=== PATIENT | male | born 1985 ===

== ENCOUNTER 2023-03-21 16:35 | Emergency (ER) | payer OTHER, MEDICAID, SELFPAY ==
[2023-03-21] VITALS (28 sets, daily range): BP systolic 140–167; BP diastolic 89–106; PULSE 83–99; RESP 14–28; TEMP 36.9; O2SAT 96–99; BMI 24.3
--- NOTE | 2023-03-21 16:43 | DI.CT.S_ITS ---
PROCEDURE: CT HEAD/BRAIN WO CON INDICATIONS: trauma, fall off 10 foot ladder TECHNIQUE: Noncontrast 4.5 mm thick angled axial sections acquired from the foramen magnum to the vertex, with coronal and sagittal reformats. For radiation dose reduction, the following was used: automated exposure control, adjustment of mA and/or kV according to patient size. COMPARISON: None. FINDINGS: Image quality: Excellent. CSF spaces: Basal cisterns are patent. No extra-axial fluid collections. Ventricles are normal in size and shape. Brain: No midline shift. No intracranial masses or hemorrhage. Ray-white matter interface is normal. Skull and face: Calvarium and visualized facial bones are intact, without suspicious lesions. Sinuses: Visualized sinuses and mastoids are clear. IMPRESSION: No acute intracranial findings. Dictated by: Alessia Borjas M.D. on 03/21/2023 at 17:14 Approved by: Alessia Borjas M.D. on 03/21/2023 at 17:15
--- NOTE | 2023-03-21 16:43 | DI.CT.S_ITS ---
PROCEDURE: CT CHEST ABD PEL W CON INDICATIONS: trauma, fall off 10 foot ladder TECHNIQUE: After the administration of intravenous contrast, 5 mm thick sections acquired from the lung apices to the symphysis. 2.5 mm thick coronal and sagittal reformats were acquired. Additional 7 mm thick coronal maximum intensity projection (MIP) reformats acquired through the lungs. Optional 10-minute delayed imaging may be performed from the kidneys to the bladder. For radiation dose reduction, the following was used: automated exposure control, adjustment of mA and/or kV according to patient size. COMPARISON: None. FINDINGS: Image quality: Excellent. CHEST: Lungs: No pulmonary contusions or lacerations. No acute airspace opacities. No pneumothorax or hemothorax. Central and peripheral airways appear patent and normal in caliber. Mediastinum: No mediastinal hematomas. Heart size is normal. No pericardial effusion. Thoracic aorta and pulmonary arteries demonstrate normal size and enhancement. No mediastinal or hilar adenopathy. Esophagus is normal in caliber. No hiatal hernia. Chest wall: No rib fractures. No subcutaneous emphysema. No axillary or supraclavicular adenopathy. Thyroid gland is unremarkable. ABDOMEN: Solid organs: Liver is normal in size and enhancement, without lacerations. Gallbladder is unremarkable. Biliary system is non-dilated. Pancreas enhances normally, without transection. Spleen is normal in size and enhancement, without lacerations. No adrenal hematomas. Both kidneys enhance normally, without hydronephrosis or lacerations. Peritoneum and bowel: No free fluid or air. Unenhanced bowel loops demonstrate normal wall thickness and caliber. The appendix is thin walled and gas filled. Nodes and vessels: There are multiple shotty retroperitoneal lymph nodes, the largest of which measures 1.2 cm in short axis diameter (series 10/image 91). Aorta and inferior vena cava are normal in size and enhancement. Miscellaneous: No ventral hernias. PELVIS: Genitourinary: Bladder wall thickness is normal. Miscellaneous: No inguinal hernias or adenopathy. Bones: Pelvic ring and hip joints appear intact. No vertebral compression fractures. IMPRESSION: 1. No acute intra-abdominal or thoracic findings. 2. Normal appendix. 3. Enlarged retroperitoneal lymph node. This is a nonspecific finding. Differential considerations include inflammatory, infectious, and neoplastic etiologies. Given the lack of other findings and patient age, inflammatory/infectious etiologies are favored. However, follow-up is recommended. Dictated by: Alessia Borjas M.D. on 03/21/2023 at 17:18 Approved by: Alessia Borjas M.D. on 03/21/2023 at 17:23
--- NOTE | 2023-03-21 16:43 | DI.CT.S_ITS ---
PROCEDURE: CT CERVICAL SPINE WO CON INDICATIONS: trauma, fall off 10 foot ladder TECHNIQUE: Noncontrast 3 mm thick sections acquired from the skull base to the T4 level. Sagittal and coronal reformats were then constructed. For radiation dose reduction, the following was used: automated exposure control, adjustment of mA and/or kV according to patient size. COMPARISON: None. FINDINGS: Image quality: Excellent. Bones: No fractures or dislocations. Visualized superior ribs are intact. Soft tissues: Prevertebral soft tissues are normal in thickness. No paravertebral hematomas. No apical pneumothoraces. IMPRESSION: No acute cervical spine injury. Dictated by: Alessia Borjas M.D. on 03/21/2023 at 17:15 Approved by: Alessia Borjas M.D. on 03/21/2023 at 17:18
[2023-03-21 17:23] LABS: Add Manual Diff / Slide Review NO; Basophils Absolute Auto 0 /uL (0-100); Basophils Percent Auto 0.4 % (0-2); Eosinophils Absolute Auto 100 /uL (0-450); Eosinophils Percent Auto 2.3 % (2-4); Hematocrit 47.5 % (41-53); Hemoglobin 16.3 g/dL (13.5-17.5); Lymphocytes Absolute Auto 1200 /uL (1100-4500); Lymphocytes Percent Auto 31.9 % (25-40); Mean Corpuscular HGB Conc 34.2 % (30-36); Mean Corpuscular Hemoglobin 33.3 PG (26-34); Mean Corpuscular Volume 97.2 fL (80-100); Monocytes Absolute Auto 500 /uL (0-900); Monocytes Percent Auto 11.7 % (3-14); Neutrophils Absolute Auto 2100 /uL (1500-7000); Neutrophils Percent Auto 53.7 % (50-75); Platelet Count 194 X10^3/uL (150-400); Red Blood Cell Count 4.89 X10^6/uL (4.5-5.9); Red Cell Distribution Width 12.6 % (11.6-14.8); White Blood Cell Count 3.9 X10^3/uL (4.5-11.0)
--- NOTE | 2023-03-21 17:24 | PC.NURSE ---
Patient used cocaine 10 years ago and experienced 3x seizure episodes/overdose. Pt denies use of cocaine in past 10 years, states he drinks 3-12 beers per day and smokes weed.
[2023-03-21 17:31] LABS: Prothrombin Time 11.2 SECONDS (10.1-12.7)
[2023-03-21 17:34] LABS: PTT Partial Thromboplastin Tim 30 SECONDS (26-36)
[2023-03-21 17:36] LABS: Alanine Aminotransferase 33 IU/L (<50); Albumin 4.6 g/dL (3.5-5.0); Albumin Globulin Ratio 1.4 (1.0-2.8); Alkaline Phosphatase 60 U/L (38-126); Aspartate Aminotransferase 49 IU/L (17-59); BUN Creatinine Ratio 5.6 (6-22); Bilirubin Total 0.6 mg/dL (0.2-1.3); Blood Urea Nitrogen 4 mg/dL (9-20); Calcium 8.4 mg/dL (8.4-10.2); Carbon Dioxide 23 mmol/L (22-32); Chloride 107 mmol/L (98-107); Estimated Glomerular Filt Rate > 60 mL/min (>60); Globulin 3.2 g/dL (1.7-4.1); Glucose 96 mg/dL (70-100); HEMOLYSIS 32 (0-50); Lactate (Lactic Acid) 2.4 mmol/L (0.7-2.1); Potassium 4.1 mmol/L (3.4-5.1); Sodium 142 mmol/L (137-145); Total Protein 7.8 g/dL (6.3-8.2)
[2023-03-21 17:43] LABS: Ethanol (ETOH) 310 mg/dL
--- NOTE | 2023-03-21 17:46 | DI.RAD.S_ITS ---
PROCEDURE: XR HAND RT MIN 3V INDICATIONS: fall from ladder TECHNIQUE: 3 views of the hand(s) acquired. COMPARISON: None. FINDINGS: Bones: No fractures or dislocations. Carpal bones are normally aligned. No suspicious bony lesions. Soft tissues: No suspicious soft tissue calcifications. IMPRESSION: A definitive fracture or dislocation. If clinical symptoms persist or clinical suspicion for pathology is high, a repeat examination in 7-10 days is suggested for further evaluation. Dictated by: Marcela Owusu M.D. on 03/21/2023 at 18:54 Approved by: Marcela Owusu M.D. on 03/21/2023 at 18:55
--- NOTE | 2023-03-21 17:46 | DI.RAD.S_ITS ---
PROCEDURE: XR HAND LT MIN 3V INDICATIONS: fall from ladder TECHNIQUE: 3 views of the hand(s) acquired. COMPARISON: None. FINDINGS: Bones: No fractures or dislocations. Carpal bones are normally aligned. No suspicious bony lesions. Soft tissues: No suspicious soft tissue calcifications. IMPRESSION: No definitive fracture. If clinical symptoms persist or clinical suspicion for pathology is high, a repeat examination in 7-10 days, or advanced imaging such as CT or MRI is suggested for further evaluation. Dictated by: Marcela Owusu M.D. on 03/21/2023 at 18:53 Approved by: Marcela Owusu M.D. on 03/21/2023 at 18:54
--- NOTE | 2023-03-21 17:46 | DI.RAD.S_ITS ---
PROCEDURE: XR FOREARM LT 2V INDICATIONS: fall from ladder TECHNIQUE: 2 views of the forearm were acquired. COMPARISON: [facility], CR, XR ELBOW LT MIN 3V, 03/21/2023, 17:53. FINDINGS: Bones: Mildly displaced radial head fracture. No dislocations. No suspicious bony lesions. Soft tissues: No suspicious soft tissue calcifications or masses. IMPRESSION: Mildly displaced radial head fracture. Dictated by: Marcela Owusu M.D. on 03/21/2023 at 18:52 Approved by: Marcela Owusu M.D. on 03/21/2023 at 18:53
--- NOTE | 2023-03-21 17:46 | DI.RAD.S_ITS ---
PROCEDURE: XR SHOULDER RT MIN 2V INDICATIONS: fall from ladder TECHNIQUE: 3 views of the shoulder were acquired. COMPARISON: None. FINDINGS: Bones: No fractures or dislocations. No suspicious bony lesions. Visualized ribs appear intact. Soft tissues: No suspicious soft tissue calcifications. IMPRESSION: No acute osseous abnormality. If clinical symptoms persist or clinical suspicion for pathology is high, a repeat examination in 7-10 days, or advanced imaging such as CT or MRI is suggested for further evaluation. Dictated by: Marcela Owusu M.D. on 03/21/2023 at 18:49 Approved by: Marcela Owusu M.D. on 03/21/2023 at 18:49
--- NOTE | 2023-03-21 17:46 | DI.RAD.S_ITS ---
PROCEDURE: XR ELBOW LT MIN 3V INDICATIONS: fall from ladder TECHNIQUE: 3 views of the elbow were acquired. COMPARISON: None. FINDINGS: Bones: There is a mildly displaced radial head fracture. Soft tissues: Small elbow joint effusion. No suspicious soft tissue calcifications. IMPRESSION: Radial head fracture. Dictated by: Marcela Owusu M.D. on 03/21/2023 at 18:51 Approved by: Marcela Owusu M.D. on 03/21/2023 at 18:52
--- NOTE | 2023-03-21 18:30 | ED_ITS ---
HPI - General Adult General Chief complaint: Trauma Stated complaint: left fall Time Seen by Provider: 03/21/23 16:53 Source: patient, family and EMS Mode of arrival: EMS History of Present Illness HPI narrative: 37-year-old male daily smoker with alcohol history presents by EMS for evaluation of traumatic injuries as a consequence of a fall. He is activated as a modified trauma. He states that he climbed up about 10 ft onto his roof to retrieve something that he would accidentally thrown up there, lost his balance and landed on his right side. He has full recall of the event denies loss of consciousness. Denies any neck or back pain. He denies any chest pain or shortness of breath and has no abdominal pain. He states he has chronic right shoulder pain but it seems to be a bit worse than normal as well as right elbow pain and bilateral thumb pain. Related Data Previous Rx's Medication Instructions Recorded cyclobenzaprine 10 mg tablet 10 mg PO TID PRN muscle spasm #14 03/21/23 tabs ketorolac 10 mg tablet 10 mg PO Q6H PRN pain #14 tabs 03/21/23 Review of Systems Review of Systems Narrative: GENERAL: Denies chills, fatigue, malaise, fever, sweats. HEENT: Denies sinus pain, ear pain, sore throat, difficulty swallowing, dizziness. RESPIRATORY: Denies dyspnea, cough, wheezing, hemoptysis, sputum. CARDIOVASCULAR: Denies chest pain, palpitations, orthopnea, edema, GASTROINTESTINAL: Denies nausea, vomiting, abdominal pain, diarrhea, constipation, melena. : Denies dysuria, frequency, incontinence, hematuria, urinary retention. MUSCULOSKELETAL: See HPI SKIN: Denies rash, skin lesions, or other NEUROLOGIC: Denies weakness, headache, numbness, change in speech, confusion, seizures, incoordination. PSYCHIATRIC: No concerning psychosocial issues. 12 point review of systems is negative except for those stated above Patient History Social History Smoking Status: Current every day smoker Smoking Status: Current every day smoker tobacco type: cigarettes alcohol intake frequency: 3 or more drinks per day Alcohol type: beer Substance Use Type: former substance user and marijuana Exam Narrative Exam Narrative: GENERAL: [37 year old patient appears stated age. Well-developed patient, in mild distress. GCS 15 HEAD: Atraumatic. Normocephalic. No contusion or abrasion, no evidence of depressed skull fracture EYES: Pupils equal round and reactive. No hyphema Extraocular motions intact. No scleral icterus. No injection or drainage. ENT: Nose without bleeding, purulent drainage. No nasal septal hematoma Throat without erythema, tonsillar hypertrophy or exudate. Airway patent. NECK: Trachea midline. Non tender, no step-offs or crepitance, no pain with axial load, C-collar in place CARDIOVASCULAR: Regular rate and rhythm without murmurs, gallops, or rubs. RESPIRATORY: Clear to auscultation. Breath sounds equal bilaterally. No wheezes, rales, or rhonchi. GASTROINTESTINAL: Abdomen soft, non-tender, nondistended. EXTREMITIES: Painful but full range of motion of right shoulder and elbow as well as bilateral thumbs. These injuries are closed and neurovascularly intact. BACK: Nontender without deformity or crepitance. No flank tenderness. NEURO: AOx3. SKIN: No rash or erythema of visible areas Initial Vital Signs Initial Vital Signs: Vital Signs Temperature 98.4 F 03/21/23 16:50 Pulse Rate 89 03/21/23 16:50 Respiratory Rate 20 03/21/23 16:50 Blood Pressure 167/98 H 03/21/23 16:50 Pulse Oximetry 96 03/21/23 16:50 Oxygen Delivery Method Room Air 03/21/23 16:50 Course Orders Ordered: ED Orders 03/21/23 16:43 CT cervical spine wo con Stat CT chest abd pel w con Stat CT head/brain wo con Stat Urinalysis and Microscopic Stat Urine Drug Screen, Rapid Stat 03/21/23 17:00 Comprehensive Metabolic Panel Stat Ethanol (ETOH) Stat Lactate (Lactic Acid) Stat PTT Partial Thromboplastin Miguel Stat Prothrombin Time INR Stat Type and Screen Stat 03/21/23 17:10 Complete Blood Count AUTO DIFF Stat 03/21/23 17:46 XR elbow LT min 3V Stat XR forearm LT 2V Stat XR hand LT min 3V Stat XR hand RT min 3V Stat XR shoulder RT min 2V Stat Vital Signs Vital signs: Vital Signs - 8 hr 03/21/23 16:50 03/21/23 17:28 03/21/23 16:56 Temperature 98.4 F Pulse Rate 89 83 Respiratory Rate 20 14 Blood Pressure 167/98 H 140/89 167/106 H Pulse Oximetry 96 98 Oxygen Delivery Method Room Air 03/21/23 16:56 03/21/23 17:00 03/21/23 17:00 Temperature Pulse Rate 91 H 89 Respiratory Rate 20 19 Blood Pressure 158/102 H Pulse Oximetry 97 96 Oxygen Delivery Method 03/21/23 17:05 03/21/23 17:10 03/21/23 17:15 Temperature Pulse Rate 89 88 Respiratory Rate 27 H 17 Blood Pressure 154/103 H Pulse Oximetry 98 97 Oxygen Delivery Method 03/21/23 17:15 03/21/23 17:20 03/21/23 17:25 Temperature Pulse Rate 86 86 86 Respiratory Rate 25 H 16 22 Blood Pressure Pulse Oximetry 99 96 97 Oxygen Delivery Method 03/21/23 17:30 03/21/23 17:30 03/21/23 17:35 Temperature Pulse Rate 83 83 Respiratory Rate 16 14 Blood Pressure 140/89 Pulse Oximetry 97 98 Oxygen Delivery Method 03/21/23 17:40 03/21/23 17:45 03/21/23 17:46 Temperature Pulse Rate 88 91 H 92 H Respiratory Rate 24 15 16 Blood Pressure Pulse Oximetry 99 97 98 Oxygen Delivery Method Room Air Room Air Medical Decision Making Lab Data 03/21/23 17:10 03/21/23 17:00 Labs: Lab Results 03/21/23 03/21/23 03/21/23 Range/Units 17:00 17:00 17:00 WBC (4.5-11.0) X10^3/uL RBC (4.5-5.9) X10^6/uL Hgb (13.5-17.5) g/dL Hct (41-53) % MCV (80-100) fL MCH (26-34) PG MCHC (30-36) % RDW (11.6-14.8) % Plt Count (150-400) X10^3/uL Neut % (Auto) (50-75) % Lymph % (Auto) (25-40) % [place] % (Auto) (3-14) % Eos % (Auto) (2-4) % Baso % (Auto) (0-2) % Neut # (Auto) (4797-6314) /uL Lymph # (Auto) (0375-8269) /uL [place] # (Auto) (0-900) /uL Eos # (Auto) (0-450) /uL Baso # (Auto) (0-100) /uL PT 11.2 (10.1-12.7) SECONDS INR 1.0 (0.9-1.3) APTT 30 (26-36) SECONDS Sodium 142 (137-145) mmol/L Potassium 4.1 (3.4-5.1) mmol/L Chloride 107 (98-107) mmol/L Carbon Dioxide 23 (22-32) mmol/L BUN 4 L (9-20) mg/dL Creatinine 0.72 (0.66-1.25) mg/dL Estimated GFR > 60 (>60) mL/min BUN/Creatinine Ratio 5.6 L (6-22) Glucose 96 (70-100) mg/dL Lactate 2.4 H (0.7-2.1) mmol/L Calcium 8.4 (8.4-10.2) mg/dL Total Bilirubin 0.6 (0.2-1.3) mg/dL AST 49 (17-59) IU/L ALT 33 (<50) IU/L Alkaline Phosphatase 60 (38-126) U/L Total Protein 7.8 (6.3-8.2) g/dL Albumin 4.6 (3.5-5.0) g/dL Globulin 3.2 (1.7-4.1) g/dL Albumin/Globulin Ratio 1.4 (1.0-2.8) Ethyl Alcohol 310 H ( - 10) mg/dL Blood Type Antibody Screen 03/21/23 03/21/23 Range/Units 17:00 17:10 WBC 3.9 L (4.5-11.0) X10^3/uL RBC 4.89 (4.5-5.9) X10^6/uL Hgb 16.3 (13.5-17.5) g/dL Hct 47.5 (41-53) % MCV 97.2 (80-100) fL MCH 33.3 (26-34) PG MCHC 34.2 (30-36) % RDW 12.6 (11.6-14.8) % Plt Count 194 (150-400) X10^3/uL Neut % (Auto) 53.7 (50-75) % Lymph % (Auto) 31.9 (25-40) % [place] % (Auto) 11.7 (3-14) % Eos % (Auto) 2.3 (2-4) % Baso % (Auto) 0.4 (0-2) % Neut # (Auto) 2100 (5274-6919) /uL Lymph # (Auto) 1200 (4553-0693) /uL [place] # (Auto) 500 (0-900) /uL Eos # (Auto) 100 (0-450) /uL Baso # (Auto) 0 (0-100) /uL PT (10.1-12.7) SECONDS INR (0.9-1.3) APTT (26-36) SECONDS Sodium (137-145) mmol/L Potassium (3.4-5.1) mmol/L Chloride (98-107) mmol/L Carbon Dioxide (22-32) mmol/L BUN (9-20) mg/dL Creatinine (0.66-1.25) mg/dL Estimated GFR (>60) mL/min BUN/Creatinine Ratio (6-22) Glucose (70-100) mg/dL Lactate (0.7-2.1) mmol/L Calcium (8.4-10.2) mg/dL Total Bilirubin (0.2-1.3) mg/dL AST (17-59) IU/L ALT (<50) IU/L Alkaline Phosphatase (38-126) U/L Total Protein (6.3-8.2) g/dL Albumin (3.5-5.0) g/dL Globulin (1.7-4.1) g/dL Albumin/Globulin Ratio (1.0-2.8) Ethyl Alcohol ( - 10) mg/dL Blood Type A Positive Antibody Screen Negative MDM Narrative Medical decision making narrative: CC: 37-year-old male trauma Complicating co-morbidities: Alcohol abuse Data collected from: Patient Medical records reviewed: Prior notes reviewed in our EMR Differential considered, but not limited to: Head injury versus cervical injury versus chest, abdomen pelvis injury versus extremity injury versus other Exam documented above, pertinent findings include: Lab Test results independently reviewed as above. Pertinent findings: Independently reviewed EKG as above Imaging studies independently reviewed: CT of head, C Spine, Chest/Abd/Pelvis without acute traumatic injuries Treatments:sling Re-evaluations: Patient resting relatively comfortably, tolerating orals, ambulating without difficulty Discussion: Patient consumed alcohol and fell, activated as a modified trauma, widespread imaging ordered which is largely very reassuring and absent of any significant findings other than a minimally displaced radial head fracture of his right elbow. This is closed and neurovascularly intact. Pain is well cont rolled. Patient splinted, encouraged to follow up, return precautions discussed Disposition: see below, along with detailed discharge instructions that have been reviewed with patient as well as indications for ED re-evaluation and additional outpatient follow up Discharge Plan Departure Patient Disposition: Home Clinical Impression: Fall, Alcohol abuse Fracture of head of radius Qualifiers: Encounter type: initial encounter Fracture type: closed Fracture alignment: displaced Laterality: right Qualified Code(s): S52.121A - Displaced fracture of head of right radius, initial encounter for closed fracture Instructions: DI for Elbow Fracture, DI for Trauma Activity Restrictions/Additional Instructions: *You have been diagnosed with [injuries from fall including right radial head fracture. As we discussed the CT scan of your head, neck, chest, abdomen and pelvis are unremarkable and there is no evidence of significant fracture or internal bleeding] *What to do: *Please continue to take your regular medications as directed. [ x] New medication prescriptions sent to your pharmacy: [[facility]] [ ] New medication written as a paper prescription [ ] No new medications given *Please follow up with your primary care provider in 2-3 days, call for an appointment. Let them know you were seen in the Emergency Department and that we ask that you be seen in follow up. We will electronically transmit a record of today's note if your PCP is in our system *If you do not have a primary care provider please contact the [facility] Resource line at [phone]. They will ask some questions about your medical history and help get you set up with a doctor in the community. *Please follow up with [ Jeanette] of [facility] in 2-3 days, call for an appointment. Let them know you were seen in the Emergency Department and that we ask that you be seen in follow up. We will electronically transmit a record of today's note if your PCP is in our system *Return to Emergency Department if you should have any new, worsening or concerning symptoms, such as [worsening pain, significant swelling, cold extremities, numbness, tingling, weakness or other bothersome symptoms Prescriptions: New cyclobenzaprine 10 mg tablet 10 mg PO TID PRN (Reason: muscle spasm) Qty: 14 0RF ketorolac 10 mg tablet 10 mg PO Q6H PRN (Reason: pain) Qty: 14 0RF Referrals: Adam Reid MD [Physician] - Stand Alone Forms: Patient Portal/API
[2023-03-21 19:15] LABS: Reflexed Lactate in 2 Hours Y
== END 2023-03-21 19:26 | disposition home or self-care (01) ==
PROVIDERS: Emergency Medicine; Emergency Provider Emergency Medicine
DX: S52.121A Displaced fracture of head of right radius, initial encounter for closed fracture (principal); M79.645 Pain in left finger(s); M79.644 Pain in right finger(s); F10.129 Alcohol abuse with intoxication, unspecified; Y90.8 Blood alcohol level of 240 mg/100 ml or more; S09.90XA Unspecified injury of head, initial encounter; W17.89XA Other fall from one level to another, initial encounter; W11.XXXA Fall on and from ladder, initial encounter
CPT/HCPCS: 36415; 70450; 71260; 72125; 73030; 73080; 73090; 73130; 74177; 80053; 80320; 83605; 85025; 85610; 85730; 86850; 86900; 86901; 99285; Q9967

== ENCOUNTER 2023-07-28 10:27 | Emergency (ER) | payer OTHER, MEDICAID, SELFPAY ==
[2023-07-28 10:30] VITALS: BP 173/94; PULSE 95; RESP 15; TEMP 36.6; O2SAT 98; BMI 25.8
--- NOTE | 2023-07-28 10:33 | DI.RAD.S_ITS ---
PROCEDURE: XR SHOULDER RT MIN 2V INDICATIONS: fall ankle and shoulder injury TECHNIQUE: 2 views of the shoulder were acquired. COMPARISON: [facility], CR, XR SHOULDER RT MIN 2V, 03/21/2023, 17:53. FINDINGS: Bones: No fractures or dislocations. No suspicious bony lesions. Visualized ribs appear intact. Soft tissues: No suspicious soft tissue calcifications. IMPRESSION: No acute fracture. No osseous lesion. If symptoms and/or clinical suspicion for pathology persist, further assessment with repeat, or advanced imaging (e.g., CT, MRI, or bone scan) may be helpful for further assessment. Dictated by: Shahla Cadena M.D. on 07/28/2023 at 10:55 Approved by: Shahla Cadena M.D. on 07/28/2023 at 10:56
--- NOTE | 2023-07-28 10:33 | DI.RAD.S_ITS ---
PROCEDURE: XR ANKLE RT MIN 3V INDICATIONS: fall ankle and shoulder injury TECHNIQUE: 3 views of the ankle were acquired. COMPARISON: None. FINDINGS: Bones: No fractures or dislocations. Ankle mortise is normally aligned. No suspicious bony lesions. Soft tissues: No tibiotalar joint effusion. Achilles tendon appears normal. IMPRESSION: No acute fracture. No osseous lesion. If symptoms and/or clinical suspicion for pathology persist, further assessment with repeat, or advanced imaging (e.g., CT, MRI, or bone scan) may be helpful for further assessment. Dictated by: Shahla Cadena M.D. on 07/28/2023 at 10:53 Approved by: Shahla Cadena M.D. on 07/28/2023 at 10:53
--- NOTE | 2023-07-28 11:22 | ED.FALL ---
HPI - Fall General Chief Complaint: Fall Stated Complaint: swelling of rt ankle Time Seen by Provider: 07/28/23 10:42 Source: patient Mode of arrival: Ambulatory History of Present Illness HPI Narrative: 38-year-old male presents by private vehicle from home for right ankle swelling and right shoulder pain after a ground level trip and fall yesterday. Difficulty bearing weight on his right ankle due to pain. Related Data Previous Rx's Medication Instructions Recorded cyclobenzaprine 10 mg tablet 10 mg PO TID PRN muscle spasm #14 03/21/23 tabs ketorolac 10 mg tablet 10 mg PO Q6H PRN pain #14 tabs 03/21/23 Allergies Allergy/AdvReac Type Severity Reaction Status Date / Time No Known Drug Allergies Allergy Verified 07/28/23 10:30 Review of Systems Review of Systems Narrative: Negative except as noted above Patient History Social History Smoking Status: Current every day smoker Smoking Status: Current every day smoker tobacco type: cigarettes alcohol intake frequency: 3 or more drinks per day Alcohol type: beer Substance Use Type: marijuana Exam Initial Vital Signs Initial Vital Signs: Vital Signs Temperature 97.9 F 07/28/23 10:30 Pulse Rate 95 H 07/28/23 10:30 Respiratory Rate 15 07/28/23 10:30 Blood Pressure 173/94 H 07/28/23 10:30 Pulse Oximetry 98 07/28/23 10:30 Oxygen Delivery Method Room Air 07/28/23 10:30 Const: Awake, alert, no acute distress, nontoxic appearing Cardiac: regular rate, regular rhythm RESP: unlabored, clear bilaterally, no wheezing GI: Atraumatic, soft, nontender, nondistended, no rebound, no guarding MSK: No deformity right ankle. Right lateral malleolar tenderness to palpation, swelling noted to right ankle Skin: Warm, Dry, intact, no rashes Neuro: AO x3, CN II-XII grossly intact, moves all extremities Psych: affect normal, mood normal, not suicidal, not homicidal Course Orders Ordered: ED Orders 07/28/23 10:33 XR ankle RT min 3V Stat XR shoulder RT min 2V Stat Vital Signs Vital signs: Vital Signs - 8 hr 07/28/23 10:30 Temperature 97.9 F Pulse Rate 95 H Respiratory Rate 15 Blood Pressure 173/94 H Pulse Oximetry 98 Oxygen Delivery Method Room Air MDM - Fall MDM Narrative Medical decision making narrative: Musculoskeletal pain after trip and fall. X-rays negative for acute fracture or dislocation. Placed in Nishant wrap for comfort. Rice instructions advised at bedside. Discharge Plan Departure Patient Disposition: Home Clinical Impression: Ankle sprain, Acute shoulder pain Instructions: DI for Ankle Sprain, How To Perform RICE (Rest, Ice, Compress, Elevate) Activity Restrictions/Additional Instructions: Take tylenol and motrin as needed for pain Prescriptions: No Action cyclobenzaprine 10 mg tablet 10 mg PO TID PRN (Reason: muscle spasm) Qty: 14 0RF ketorolac 10 mg tablet 10 mg PO Q6H PRN (Reason: pain) Qty: 14 0RF Stand Alone Forms: Patient Portal/API
== END 2023-07-28 11:35 | disposition home or self-care (01) ==
PROVIDERS: Emergency Provider Emergency Medicine
DX: S93.401A Sprain of unspecified ligament of right ankle, initial encounter (principal); M25.511 Pain in right shoulder; W01.0XXA Fall on same level from slipping, tripping and stumbling without subsequent striking against object, initial encounter
CPT/HCPCS: 73030; 73610; 99282; 99283

== ENCOUNTER 2025-03-17 23:11 | Emergency (ER) | payer MEDICAID, SELFPAY ==
--- NOTE | 2025-03-17 23:11 | ED_ITS ---
HPI - Psych <Kike Schwab DO - Last Filed: 03/18/25 05:55> General Chief Complaint: Toxicology Problem Stated Complaint: SI, Overdose Time Seen by Provider: 03/17/25 23:11 History of Present Illness HPI Narrative: Patient is a 39-year-old male past medical history of alcohol abuse brought in medics and police for [facility], patient states that he took proximally 50-60 your 0.1 mg clonidine prior to arrival, states that he also has been drinking alcohol, he states that he was drinking like normal and states that he had a temporary lapse of wanting to kill himself, he states that after he drank it he immediately regretted it and called medics. According to medics patient sleepy but arousable. Patient without any current suicidal or homicidal ideations denies any other symptoms at this time Related Data Previous Rx's ?Medication ?Instructions ?Recorded cyclobenzaprine 10 mg tablet 10 mg PO TID PRN muscle s pasm #14 03/21/23 tabs ketorolac 10 mg tablet 10 mg PO Q6H PRN pain #14 ta bs 03/21/23 Allergies Allergy/AdvReac Type Severity Reaction Status Date / Time No Known Drug Allergies Allergy Verified 07/28/23 10:30 Review of Systems <DO Omar Pascal Last Filed: 03/18/25 05:55> Review of Systems Narrative: General: Positive generalized weakness Denies fever, chills, weight loss HEENT: Denies headache, eye drainage, eye irritation, head trauma, sore throat, voice change Cardiovascular: Denies any chest pain, palpitations, tachycardia Respiratory: Denies any shortness of breath, cough, wheeze, stridor GI/: Denies any abdominal pain, nausea, vomiting, diarrhea, bright red blood per rectum, melanotic stools, urinary frequency, urinary retention, dysuria, hematuria MSK: Denies any joint pain, muscle pains, swelling Skin: Denies any rashes, lesions, discoloration Neuro: Denies any headache, lightheadedness, dizziness, fainting, weakness Psych: Positive suicidal attempt, denies HI Patient History <Kike Schwab DO - Last Filed: 03/18/25 05:55> tobacco type: cigarettes alcohol intake frequency: 3 or more drinks per day Alcohol type: beer Exam <Kike Schwab DO - Last Filed: 03/18/25 05:55> Narrative Exam Narrative: General: Cooperative, well-developed, not in acute distress HEENT: Normocephalic, atraumatic, PERRLA, normal sclera, eyelids normal Neck: Active full range of motion, atraumatic Chest: Normal to inspection, negative crepitus, no overlying erythema ecchymosis Respiratory: Normal respiratory effort, not in acute respiratory distress, clear to auscultation bilaterally negative cough, wheeze, tachypnea, rhonchi, rales Cardiology: Regular rate rhythm negative gallop, murmur, rubs GI/: No tenderness to palpation, soft, non rigid, normal to inspection, exam deferred MSK: Full active range of motion in all 4 extremities, atraumatic, no tenderness to palpation of any bony prominences Skin: No rashes or lesions noted Neuro: Patient lethargic but arousable, Alert awake oriented x3, moves all 4 extremities spontaneously, cranial nerves intact, able to answer all questions appropriately follows commands appropriately Psych: Cooperative, negative suicidal or homicidal ideations Initial Vital Signs Initial Vital Signs: Vital Signs Pulse Rate 65 03/17/25 23:14 Blood Pressure 99/73 03/17/25 23:14 Pulse Oximetry 99 03/17/25 23:14 <Ileana Jimenez, DO - Last Filed: 03/18/25 09:12> Initial Vital Signs Initial Vital Signs: Vital Signs Pulse Rate 65 03/17/25 23:14 Blood Pressure 99/73 03/17/25 23:14 Pulse Oximetry 99 03/17/25 23:14 Course <Kike DO Zaheer - Last Filed: 03/18/25 05:55> Orders Ordered: Sodium Chloride (Normal Saline 0.9%) 1,000 mls @ 150 mls/hr IV CONT DIRK Last Admin: 03/18/25 01:16 Dose: 150 mls/hr Documented By: RLC Discontinued Medications Sodium Chloride (Normal Saline 0.9%) 1,000 mls @ 1,000 mls/hr IV BOLUS ONE Stop: 03/18/25 00:18 Last Infusion: 03/18/25 00:18 Dose: Infused Documented By: Admin: 03/17/25 23:30 Dose: 1,000 mls/hr Documented By: LUIS Sodium Chloride (Normal Saline 0.9%) 1,000 mls @ 1,000 mls/hr IV BOLUS ONE Stop: 03/18/25 01:18 Last Infusion: 03/18/25 01:15 Dose: Infused Documented By: Admin: 03/18/25 00:20 Dose: 1,000 mls/hr Documented By: KH Sodium Chloride (Normal Saline 0.9%) 250 mls @ 21 mls/hr IV CONT DIRK Last Admin: 03/18/25 01:12 Dose: Not Given Documented By: LILLIAN Vital Signs Vital signs: Vital Signs - 8 hr 03/18/25 01:30 03/18/25 01:30 03/18/25 02:00 Pulse Rate 55 L 58 L Respiratory Rate 18 Blood Pressure 110/75 Pulse Oximetry 98 98 03/18/25 02:00 03/18/25 02:30 03/18/25 02:30 Pulse Rate 59 L Respiratory Rate 18 Blood Pressure 120/81 117/79 Pulse Oximetry 97 03/18/25 03:00 03/18/25 03:30 03/18/25 03:30 Pulse Rate 68 68 Respiratory Rate 36 H 30 H Blood Pressure 133/91 H Pulse Oximetry 97 97 03/18/25 04:00 03/18/25 04:00 03/18/25 04:30 Pulse Rate 73 Respiratory Rate 17 Blood Pressure 124/88 134/94 H Pulse Oximetry 96 03/18/25 04:30 03/18/25 05:00 03/18/25 05:01 Pulse Rate 69 74 Respiratory Rate 16 Blood Pressure 127/93 H Pulse Oximetry 97 96 03/18/25 05:01 03/18/25 05:30 03/18/25 05:30 Pulse Rate 75 68 Respiratory Rate 14 14 Blood Pressure 139/98 H Pulse Oximetry 96 96 03/18/25 06:00 03/18/25 06:00 03/18/25 06:30 Pulse Rate 68 Respiratory Rate 15 Blood Pressure 143/96 H 138/98 H Pulse Oximetry 96 03/18/25 06:30 03/18/25 07:00 03/18/25 07:00 Pulse Rate 69 76 Respiratory Rate 15 16 Blood Pressure 139/104 H Pulse Oximetry 97 97 03/18/25 07:30 03/18/25 07:30 03/18/25 08:00 Pulse Rate 63 69 Respiratory Rate 15 17 Blood Pressure 142/90 H Pulse Oximetry 96 92 03/18/25 08:00 03/18/25 08:30 03/18/25 08:31 Pulse Rate 70 72 Respiratory Rate 19 19 Blood Pressure 112/78 Pulse Oximetry 98 98 03/18/25 08:31 Pulse Rate Respiratory Rate Blood Pressure 117/95 H Pulse Oximetry <Ileana Jimenez, DO - Last Filed: 03/18/25 09:12> Orders Ordered: Sodium Chloride (Normal Saline 0.9%) 1,000 mls @ 150 mls/hr IV CONT DIRK Last Admin: 03/18/25 01:16 Dose: 150 mls/hr Documented By: LILLIAN Discontinued Medications Sodium Chloride (Normal Saline 0.9%) 1,000 mls @ 1,000 mls/hr IV BOLUS ONE Stop: 03/18/25 00:18 Last Infusion: 03/18/25 00:18 Dose: Infused Documented By: Admin: 03/17/25 23:30 Dose: 1,000 mls/hr Documented By: LUIS Sodium Chloride (Normal Saline 0.9%) 1,000 mls @ 1,000 mls/hr IV BOLUS ONE Stop: 03/18/25 01:18 Last Infusion: 03/18/25 01:15 Dose: Infused Documented By: Admin: 03/18/25 00:20 Dose: 1,000 mls/hr Documented By: LUIS Sodium Chloride (Normal Saline 0.9%) 250 mls @ 21 mls/hr IV CONT DIRK Last Admin: 03/18/25 01:12 Dose: Not Given Documented By: LILLIAN Vital Signs Vital signs: Vital Signs - 8 hr 03/18/25 01:30 03/18/25 01:30 03/18/25 02:00 Pulse Rate 55 L 58 L Respiratory Rate 18 Blood Pressure 110/75 Pulse Oximetry 98 98 03/18/25 02:00 03/18/25 02:30 03/18/25 02:30 Pulse Rate 59 L Respiratory Rate 18 Blood Pressure 120/81 117/79 Pulse Oximetry 97 03/18/25 03:00 03/18/25 03:30 03/18/25 03:30 Pulse Rate 68 68 Respiratory Rate 36 H 30 H Blood Pressure 133/91 H Pulse Oximetry 97 97 03/18/25 04:00 03/18/25 04:00 03/18/25 04:30 Pulse Rate 73 Respiratory Rate 17 Blood Pressure 124/88 134/94 H Pulse Oximetry 96 03/18/25 04:30 03/18/25 05:00 03/18/25 05:01 Pulse Rate 69 74 Respiratory Rate 16 Blood Pressure 127/93 H Pulse Oximetry 97 96 03/18/25 05:01 03/18/25 05:30 03/18/25 05:30 Pulse Rate 75 68 Respiratory Rate 14 14 Blood Pressure 139/98 H Pulse Oximetry 96 96 03/18/25 06:00 03/18/25 06:00 03/18/25 06:30 Pulse Rate 68 Respiratory Rate 15 Blood Pressure 143/96 H 138/98 H Pulse Oximetry 96 03/18/25 06:30 03/18/25 07:00 03/18/25 07:00 Pulse Rate 69 76 Respiratory Rate 15 16 Blood Pressure 139/104 H Pulse Oximetry 97 97 03/18/25 07:30 03/18/25 07:30 03/18/25 08:00 Pulse Rate 63 69 Respiratory Rate 15 17 Blood Pressure 142/90 H Pulse Oximetry 96 92 03/18/25 08:00 03/18/25 08:30 03/18/25 08:31 Pulse Rate 70 72 Respiratory Rate 19 19 Blood Pressure 112/78 Pulse Oximetry 98 98 03/18/25 08:31 Pulse Rate Respiratory Rate Blood Pressure 117/95 H Pulse Oximetry MDM - Psych <Kike Schwab, DO - Last Filed: 03/18/25 05:55> Lab Data 03/17/25 23:49 03/17/25 23:49 Labs: Lab Results 03/17/25 Range/Units 23:49 WBC 4.9 (4.5-11.0) X10^3/uL RBC 5.04 (4.5-5.9) X10^6/uL Hgb 16.3 (13.5-17.5) g/dL Hct 47.0 (41-53) % MCV 93.2 (80-100) fL MCH 32.4 (26-34) PG MCHC 34.8 (30-36) % RDW 13.6 (11.6-14.8) % Plt Count 216 (150-400) X10^3/uL Neut % (Auto) 50.4 (50-75) % Lymph % (Auto) 36.5 (25-40) % Wetzel % (Auto) 8.6 (3-14) % Eos % (Auto) 4.0 (2-4) % Baso % (Auto) 0.5 (0-2) % Neut # (Auto) 2500 (1479-6618) /uL Lymph # (Auto) 1800 (8748-6729) /uL [place] # (Auto) 400 (0-900) /uL Eos # (Auto) 200 (0-450) /uL Baso # (Auto) 0 (0-100) /uL Sodium 140 (137-145) mmol/L Potassium 4.0 (3.4-5.1) mmol/L Chloride 107 (98-107) mmol/L Carbon Dioxide 20 L (22-32) mmol/L BUN 9 (9-20) mg/dL Creatinine 1.02 (0.66-1.25) mg/dL Estimated GFR > 60 (>60) mL/min BUN/Creatinine Ratio 8.8 (6-22) Glucose 124 H (70-99) mg/dL Calcium 8.9 (8.4-10.2) mg/dL Magnesium 2.2 (1.6-2.3) mg/dL Total Bilirubin 0.8 (0.2-1.3) mg/dL AST 40 (17-59) IU/L ALT 25 (<50) IU/L Alkaline Phosphatase 57 (38-126) U/L Total Protein 7.2 (6.3-8.2) g/dL Albumin 4.5 (3.5-5.0) g/dL Globulin 2.7 (1.7-4.1) g/dL Albumin/Globulin Ratio 1.7 (1.0-2.8) TSH 2.13 (0.47-4.68) uIU/mL Salicylates < 1.0 (<20) mg/dL Acetaminophen < 10 (10-30) ug/mL Ethyl Alcohol 252 H (<10) mg/dL ECG Data Interpretation: EKG interpreted ED physician sinus 61 beats per minute QTC 412, normal axis, QRS MD interval within normal limits no STEMI MDM Narrative Medical decision making narrative: 39-year-old male history of alcohol abuse brought in [place] by police for evaluation of suicidal attempt. Patient states that he was drinking like normal had a episode of wanting to kill himself so took a proximally 50-60 0.1 mg clonidine. This happened 1 hour prior to arrival. He states that after he did it he regretted it and therefore called medics. Patient at time of evaluation intoxicated he is lethargic but arousable. He denies any active suicidal or homicidal ideations he is calm cooperative and willing to cooperate with staff at this time. 2319: Discussed case with poison control pharmacist Marcel, states he would recommend observation time of 12 hours given unknown whether or not immediate or extended release, he states that if it is found out that it is immediate released would recommend 4-6 times of observation. States that we should look out for [employer] and respiratory depression, states can see bradycardia hypotension would treat with fluids pressors and atropine as needed. Also states that he Narcan may be helpful for [employer] depression. 0105: Patient re-evaluated, he is calm cooperative mentating well, however patient blood pressure mapping 60, patient has already received 2 L normal saline bolus, at this time we will start 150 cc an hour of continuous fluids, patient is significant other is at bedside she states that she will go to the house to determine whether or not this is extended or immediate release. At this time they are still no indication for pressors, however we will continue to monitor 0155: Got an update from patient's significant other, was able to get the prescription bottle of the patient's, it is immediate release not extended release, and it was determined that patient actually took greater than 90 tablets rather than 60. However patient is still mentating well, pressures have improved. 0200: Had a discussion with poison control, states given immediate release can be Obs 6hrs, however states that this should be determined based off of bradycardia, states that if patient is bradycardic in the 30s to 40s would recommend observation for several more hours. 0400: Patient has remained normotensive, patient's bradycardia improving, patient now mid 60s to 70s. Patient is now medically cleared at this time. We will call/reach out to [facility] for mental health evaluation and clearance. <Ileana Jimenez, DO - Last Filed: 03/18/25 09:12> Lab Data Labs: Lab Results 03/17/25 Range/Units 23:49 WBC 4.9 (4.5-11.0) X10^3/uL RBC 5.04 (4.5-5.9) X10^6/uL Hgb 16.3 (13.5-17.5) g/dL Hct 47.0 (41-53) % MCV 93.2 (80-100) fL MCH 32.4 (26-34) PG MCHC 34.8 (30-36) % RDW 13.6 (11.6-14.8) % Plt Count 216 (150-400) X10^3/uL Neut % (Auto) 50.4 (50-75) % Lymph % (Auto) 36.5 (25-40) % Wetzel % (Auto) 8.6 (3-14) % Eos % (Auto) 4.0 (2-4) % Baso % (Auto) 0.5 (0-2) % Neut # (Auto) 2500 (4896-3106) /uL Lymph # (Auto) 1800 (4142-4558) /uL Wetzel # (Auto) 400 (0-900) /uL Eos # (Auto) 200 (0-450) /uL Baso # (Auto) 0 (0-100) /uL Sodium 140 (137-145) mmol/L Potassium 4.0 (3.4-5.1) mmol/L Chloride 107 (98-107) mmol/L Carbon Dioxide 20 L (22-32) mmol/L BUN 9 (9-20) mg/dL Creatinine 1.02 (0.66-1.25) mg/dL Estimated GFR > 60 (>60) mL/min BUN/Creatinine Ratio 8.8 (6-22) Glucose 124 H (70-99) mg/dL Calcium 8.9 (8.4-10.2) mg/dL Magnesium 2.2 (1.6-2.3) mg/dL Total Bilirubin 0.8 (0.2-1.3) mg/dL AST 40 (17-59) IU/L ALT 25 (<50) IU/L Alkaline Phosphatase 57 (38-126) U/L Total Protein 7.2 (6.3-8.2) g/dL Albumin 4.5 (3.5-5.0) g/dL Globulin 2.7 (1.7-4.1) g/dL Albumin/Globulin Ratio 1.7 (1.0-2.8) TSH 2.13 (0.47-4.68) uIU/mL Salicylates < 1.0 (<20) mg/dL Acetaminophen < 10 (10-30) ug/mL Ethyl Alcohol 252 H (<10) mg/dL MDM Narrative Medical decision making narrative: 39-year-old male history of alcohol abuse brought in [place] by police for evaluation of suicidal attempt. Patient states that he was drinking like normal had a episode of wanting to kill himself so took a proximally 50-60 0.1 mg clonidine. This happened 1 hour prior to arrival. He states that after he did it he regretted it and therefore called medics. Patient at time of evaluation intoxicated he is lethargic but arousable. He denies any active suicidal or homicidal ideations he is calm cooperative and willing to cooperate with staff at this time. 2319: Discussed case with poison control pharmacist Marcel, states he would recommend observation time of 12 hours given unknown whether or not immediate or extended release, he states that if it is found out that it is immediate released would recommend 4-6 times of observation. States that we should look out for [employer] and respiratory depression, states can see bradycardia hypotension would treat with fluids pressors and atropine as needed. Also states that he Narcan may be helpful for [employer] depression. 0105: Patient re-evaluated, he is calm cooperative mentating well, however patient blood pressure mapping 60, patient has already received 2 L normal saline bolus, at this time we will start 150 cc an hour of continuous fluids, patient is significant other is at bedside she states that she will go to the house to determine whether or not this is extended or immediate release. At this time they are still no indication for pressors, however we will continue to monitor 0155: Got an update from patient's significant other, was able to get the prescription bottle of the patient's, it is immediate release not extended release, and it was determined that patient actually took greater than 90 tablets rather than 60. However patient is still mentating well, pressures have improved. 0200: Had a discussion with poison control, states given immediate release can be Obs 6hrs, however states that this should be determined based off of bradycardia, states that if patient is bradycardic in the 30s to 40s would recommend observation for several more hours. 0400: Patient has remained normotensive, patient's bradycardia improving, patient now mid 60s to 70s. Patient is now medically cleared at this time. We will call/reach out to [facility] for mental health evaluation and clearance. 899Dr. Jimenez-patient signed out to me seen evaluated by myself. DC are evaluated patient contracts for safety he has been set up for outpatient follow- up. Patient states he is no longer suicidal he thinks that he was just intoxicated and took too many medications. He is awake alert oriented. Discharge Plan Departure Patient Disposition: Home Clinical Impression: Suicide attempt, Alcohol abuse, Intentional drug overdose Instructions: DI for Suicidal Ideation-Adult Activity Restrictions/Additional Instructions: *You have been diagnosed with alcohol intoxication *What to do: If you are feeling suicidal or having suicidal thoughts: Call: Suicide Hotline: 476 Visit: www.[employer] Text: 661 *Continue to take medications as directed *Follow up with your primary care provider in 2-3 days or call [phone] Follow-up with resources given to and [facility] will reach out *Return to ER if you should have pulse of hurting self or other or any new, worsening or concerning symptoms Prescriptions: No Action cyclobenzaprine 10 mg tablet 10 mg PO TID PRN (Reason: muscle spasm) Qty: 14 0RF ketorolac 10 mg tablet 10 mg PO Q6H PRN (Reason: pain) Qty: 14 0RF Stand Alone Forms: Patient Portal/API
[2025-03-17 23:14] VITALS: BP 99/73; PULSE 65; O2SAT 99
--- NOTE | 2025-03-17 23:15 | EKG_ITS ---
[address] [address] Test Date: 2025-03-17 Pat Name: Yahir Gardiner Department: Room: Gender: Male [employer] Assistant: DAYDAY : 1985 Requested By: Order Number: [id number] Reading MD: Roberto Henry Measurements Intervals [place] Rate: 61 P: 35 OR: 134 QRS: 39 QRSD: 92 T: 41 QT: 410 QTc: 412 Interpretive Statements Normal sinus rhythm Electronically Signed On 03-18-2025 13:50:35 PDT by Roberto Henry
[2025-03-17 23:22] VITALS: BP 99/73; PULSE 65; RESP 14; O2SAT 98; BMI 25.1
[2025-03-17 23:30] VITALS: BP 98/68; PULSE 60; RESP 20; O2SAT 97
[2025-03-17] MEDS: SODIUM CHLORIDE 0.9% 1,000 ML 1000 ML IV (23:30)
[2025-03-17 23:58] LABS: Add Manual Diff / Slide Review NO; Hematocrit 47.0 % (41-53); Hemoglobin 16.3 g/dL (13.5-17.5); Lymphocytes Absolute Auto 1800 /uL (1100-4500); Mean Corpuscular HGB Conc 34.8 % (30-36); Mean Corpuscular Hemoglobin 32.4 PG (26-34); Mean Corpuscular Volume 93.2 fL (80-100); Platelet Count 216 X10^3/uL (150-400)
[2025-03-18] VITALS (22 sets, daily range): BP systolic 82–143; BP diastolic 51–104; PULSE 55–76; RESP 14–36; TEMP 36.9; O2SAT 92–98
[2025-03-18 00:17] LABS: Acetaminophen < 10 ug/mL (10-30); Alanine Aminotransferase 25 IU/L (<50); Albumin 4.5 g/dL (3.5-5.0); Albumin Globulin Ratio 1.7 (1.0-2.8); Alkaline Phosphatase 57 U/L (38-126); Blood Urea Nitrogen 9 mg/dL (9-20); Calcium 8.9 mg/dL (8.4-10.2); Carbon Dioxide 20 mmol/L (22-32); Chloride 107 mmol/L (98-107); Estimated Glomerular Filt Rate > 60 mL/min (>60); Ethanol (ETOH) 252 mg/dL (<10); Globulin 2.7 g/dL (1.7-4.1); Glucose 124 mg/dL (70-99); HEMOLYSIS 24 (0-50); Magnesium 2.2 mg/dL (1.6-2.3); Potassium 4.0 mmol/L (3.4-5.1); Salicylate < 1.0 mg/dL (<20); Sodium 140 mmol/L (137-145); Total Protein 7.2 g/dL (6.3-8.2)
[2025-03-18] MEDS: SODIUM CHLORIDE 0.9% 1,000 ML 1000 ML IV (00:20)
--- NOTE | 2025-03-18 00:50 | PC.NURSE ---
pt ex SO here per pt' permission she was allowed into the room and the plan of care was discussed with her, she verbalized understanding
[2025-03-18 00:57] LABS: TSH w/ Reflex to FT4 2.13 uIU/mL (0.47-4.68)
[2025-03-18] MEDS: SODIUM CHLORIDE 0.9% 1,000 ML 150 ML IV (01:16)
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
--- NOTE | 2025-03-18 07:50 | PC.NURSE ---
Addendum entered by Inga Henry CNA 03/18/25 08:36: DCR left bedside, pt safety monitoring continues. Original Note: [facility] note: [facility] bedside with patient.
== END 2025-03-18 09:45 | disposition home or self-care (01) ==
PROVIDERS: Student in an Organized Health Care Education/Training Program; Emergency Provider Emergency Medicine
DX: T14.91XA Suicide attempt, initial encounter (principal); T46.5X2A Poisoning by other antihypertensive drugs, intentional self-harm, initial encounter; F10.129 Alcohol abuse with intoxication, unspecified; Y90.8 Blood alcohol level of 240 mg/100 ml or more
CPT/HCPCS: 80053; 80320; 80329; 83735; 84443; 85025; 93005; 96360; 96361; 99284; G0480